=== PATIENT | female | born 1940 | race Caucasian/White ===

== ENCOUNTER → 2018-11-22 | Outpatient (CLI) | payer MEDICARE, BC, SELFPAY ==
[2018-11-07 08:49] VITALS: BMI 21.4
[2018-11-21 09:20] VITALS: BMI 21.2
--- NOTE | 2018-11-22 12:45 | ECHOD_ITS ---
Reason For Study: Dyspnea/SOB Procedure This was a 2D Doppler, Color Flow transthoracic echocardiogram. Exam performed in department. Left Ventricle Normal size and thickness. The estimated ejection fraction is 65 %. Stage 1 diastolic dysfunction. No regional wall motion abnormalities noted. Right Ventricle Normal size and thickness. Normal systolic function. Atria Normal left atrium. Normal right atrium. Normal atrial septum. Mitral Valve The mitral valve is structurally normal. No prolapse or stenosis seen. Tricuspid Valve Normal tricuspid valve. Trivial tricuspid valve insufficiency. Right ventricular systolic pressure estimated to be 32 mmHg. Aortic Valve Trisinus/trileaflet aortic valve. Mild focal aortic valve thickening. Trivial aortic valve insufficiency. Pulmonic Valve Normal pulmonic valve. Great Vessels Normal aortic root. Normal arch. Normal inferior vena cava. Inferior vena cava collapse with sniff. Pericardium/Pleural No pericardial effusion. MMode/2D Measurements & Calculations LVIDd: 3.8 cm IVSd: 0.91 cm LA dimension: 3.3 cm LVIDs: 2.1 cm LVPWd: 0.90 cm RVDd: 3.0 cm FS: 43.2 % LAV(MOD-bp): 37.7 ml LA A4 area: 14.2 cm2 RA A4 area: 12.6 cm2 LAV(MOD-bp) Indexed: 23.0 ml/m2 LAV(MOD-sp2): 35.6 ml LAV(MOD-sp4): 35.2 ml Time Measurements MV dec time: 0.15 sec Doppler Measurements & Calculations MV E max romel: 73.9 cm/sec Lat Peak E' Romel: 4.4 cm/sec Med Peak E' Romel: 4.7 cm/sec MV A max romel: 101.4 cm/sec E/E' lat: 16.8 E/E' med: 15.7 MV E/A: 0.73 MV V2 max: 137.7 cm/sec MV P1/2t max romel: 83.8 cm/sec Ao V2 max: 146.4 cm/sec MV max P.6 mmHg MV P1/2t: 94.7 msec Ao max P.6 mmHg MV V2 mean: 60.1 cm/sec MV dec slope: 259.1 cm/sec2 Ao V2 mean: 95.6 cm/sec MV mean P.8 mmHg MVA(P1/2t): 2.3 cm2 Ao mean P.1 mmHg MV V2 VTI: 35.9 cm Ao V2 VTI: 30.2 cm AI max romel: 476.6 cm/sec LV V1 max: 108.9 cm/sec PA V2 max: 109.8 cm/sec AI max P.8 mmHg LV V1 max P.7 mmHg LV V1 mean P.3 mmHg AI dec slope: 231.3 cm/sec2 LV V1 mean: 70.0 cm/sec AI P1/2t: 603.4 msec LV V1 VTI: 20.6 cm TR max romel: 236.3 cm/sec TR max P.5 mmHg Interpretation Summary The estimated ejection fraction is 65 %. Stage 1 diastolic dysfunction. Trivial tricuspid valve insufficiency. Right ventricular systolic pressure estimated to be 32 mmHg. Trivial aortic valve insufficiency. There is no comparison study available. Ordering Physician: Shadi De Leon Referring Physician: Shadi De Leon Performed By: Bradley Kwon RCS
== END | disposition home or self-care (01) ==
LOC: CVS 12:44
PROVIDERS: Family Provider Family Medicine; PCP Family Medicine; Referring Provider Internal Medicine Cardiovascular Disease; Visit Provider Internal Medicine Cardiovascular Disease
DX: Z98.890 Other specified postprocedural states (principal)
CPT/HCPCS: 93306

== ENCOUNTER → 2018-11-24 | Outpatient (CLI) | payer MEDICARE, BC, SELFPAY ==
[2018-11-07 08:49] VITALS: BMI 21.4
[2018-11-21 09:20] VITALS: BMI 21.2
--- NOTE | 2018-11-24 10:28 | STE_ITS ---
Reason For Study: DYSPNEA/SOB/ABN EKG Stress Results Protocol: Marcin Protocol Maximum Predicted HR: 143 bpm Target HR: 122 bpm % Maximum Predicted HR: 120 % DurationHeart Rate Stage (mm:ss) (bpm) BP Comment BASELINE 68 122/70 STAGE 1 3:00 157 172/80 STAGE 2 2:30 171 172/72INCREASED SOB, INCREASED HEART RATE AND PVC'S RECOVERY 100 120/72 Stress Duration: 5:30 mm:ss Maximum Stress HR: 171 bpm Baseline Echocardiogram Findings The estimated ejection fraction is 55 %. Stress Echo Wall motion Data Resting WM Intermediate WM Stress WM Resting Wall Motion Wall Motion Stress Anterio-Basal: Mildly Infero-Basal: Mildly hypokinetic. hypokinetic. Mid-Lateral : Mildly hypokinetic. EKG Data The baseline ECG displays normal sinus rhythm. The patient exercised according to the regular Marcin protocol for a total duration of 5:30. The maximum heart rate attained was 173 beats per minute. This was 120% of maximum predicted heart rate. The patient exercised into stage 2 of the Marcin protocol. During stress, there were no ST or T wave changes noted to suggest ischemia. No clinical angina was noted. Interpretation Summary The estimated ejection fraction is 55 %. Infero-Basal: Mildly hypokinetic Mid-Lateral : Mildly hypokinetic Abnormal, adequate, treadmill echocardiogram. Positive for ischemia based upon echocardiographic criteria. The patient appeared to develop inferior and lateral hypokinesis at peak exercise. Patient had a baseline intraventricular conduction delay due to baseline left bundle branch block making anterior interpretation somewhat difficult. No anginal symptoms noted. Rare PACs noted. Appropriate blood pressure response to exercise. Average exercise capacity for age. Test terminated due to the attainment of target heart rate and dyspnea which may be an anginal equivalent. Final LVEF of 55%. Ordering Physician: Shadi De Leon Referring Physician: Shadi De Leon Performed By: Deann Mrarufo, SHA, RVT
== END | disposition home or self-care (01) ==
LOC: CVS 10:27
PROVIDERS: Family Provider Family Medicine; PCP Family Medicine; Referring Provider Internal Medicine Cardiovascular Disease; Visit Provider Internal Medicine Cardiovascular Disease
DX: I44.7 Left bundle-branch block, unspecified (principal); R06.00 Dyspnea, unspecified; R94.31 Abnormal electrocardiogram [ECG] [EKG]
CPT/HCPCS: 93017; 93350

== ENCOUNTER → 2018-11-27 | Outpatient (CLI) | payer MEDICARE, BC, SELFPAY ==
[2018-11-27 09:39] VITALS: BMI 21.2
[2018-11-27 11:19] LABS: Anion Gap 2 (5-15); BUN 14 mg/dL (7-18); BUN/Creat Ratio 19.8 RATIO (10-20); Calcium,Total 8.8 mg/dL (8.5-10.1); Chloride 109 mmol/L (98-107); Creatinine, Serum 0.71 mg/dL (0.55-1.02); EST Glomerular Filtration Rate 85 mL/min (>60); Est Glom Filt Rate - Afr Amer 103 mL/min (>60); Glucose 86 mg/dL (74-106); Hematocrit 44.4 % (37-47); Hemoglobin 15.2 g/dl (12.0-15.0); Mean Corp Hgb Conc 34.2 g/gl (32-36); Mean Corpuscular Hgb 30.5 pg (27.0-32.0); Mean Corpuscular Volume 89.2 fL (81-99); Mean Platelet Vol. 10.1 fl (6.2-12.0); Platelet Count 223 K/mm3 (150-450); RBC Distribution Width CV 13.2 % (11.6-14.6); RBC Distribution Width SD 42.8 fl (35.1-43.9); Red Blood Count 4.98 M/mm3 (4.2-5.4); Sodium Level 141 mmol/L (136-145); White Blood Count 4.3 K/mm3 (4.4-11.0)
[2018-11-27 11:21] LABS: International Normalized Ratio 0.9; Prothrombin Time (Protime)PT. 12.4 SECONDS (11.7-14.9)
[2018-11-27 11:22] LABS: Partial Thromboplast Time 33.2 Seconds (24.1-36.2)
[2018-11-27 11:29] LABS: Scan Indicated on CBC? Y/N NO
== END | disposition home or self-care (01) ==
LOC: LAB 10:38
PROVIDERS: Family Provider Family Medicine; PCP Family Medicine; Referring Provider Internal Medicine Cardiovascular Disease; Visit Provider Internal Medicine Cardiovascular Disease
DX: R94.39 Abnormal result of other cardiovascular function study (principal); I20.8 Other forms of angina pectoris; R06.09 Other forms of dyspnea; R94.31 Abnormal electrocardiogram [ECG] [EKG]; R06.02 Shortness of breath
CPT/HCPCS: 36415; 80048; 85027; 85610; 85730

== ENCOUNTER 2018-12-01 07:12 | Day surgery (SDC) | payer MEDICARE, BC, SELFPAY ==
--- NOTE | 2018-11-07 09:10 | HP_ITS ---
HPI HPI Surgical H&P: Yes Details: Mr. Fenton is a very pleasant 77-year-old nondiabetic, non-smoking, nonhypertensive female, on no cardiac meds really who is been relatively healthy her whole life. The patient noted over the last several weeks that she has had progressively worsening dyspnea on exertion and shortness of breath. 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 Patient took ibuprofen and this improved it however returned more severely this past Tuesday and she described as though an elephant were on her arm. She had no concomitant chest pain, angina, shortness of breath or jaw pain with this. Patient iced her shoulder and took ibuprofen and it re-resolved. She has had no more right shoulder pain since that time. She sought medical attention her PCPs office on 10/25/18 and an EKG was performed. This demonstrated normal sinus rhythm with possible left atrial enlargement and left bundle branch block which apparently was newly discovered. She has never been told she has any coronary disease and is never undergone a catheterization. On further history she was told she had a murmur many years ago but cannot recall what type it was. She cannot recall having an EKG in the past 20 years. She is unsure how long she has had a left bundle branch block. In our office today her blood pressure is 120/64, pulse is 80 and regular. Her physical exam demonstrates clear lungs bilaterally, regular rate and rhythm, normal S1/S2, no S3 or S4. No carotid bruits no murmurs are detected. No edema. EKG is as above. Lipids as of 10/25/18 show an HDL of 63 and an LDL of 123. Non-HDL is 142. 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 Is patient in pain?: No Allergies Sulfa (Sulfonamide Antibiotics) Allergy (Severe, Verified 11/07/18 08:49) Eyegtts made eyes very inflamed Medications calcium 600mg with vitamin D3 125 units PO DAILY 11/01/18 [History Confirmed 11/01/18] cholecalciferol (vitamin D3) 1,000 unit tablet 1,000 unit PO DAILY 11/01/18 [History Confirmed 11/01/18] metronidazole 1 % topical gel 1 applic TOPICAL DAILY 11/01/18 [History Confirmed 11/01/18] multivitamin tablet 1 tab PO DAILY 11/01/18 [History Confirmed 11/01/18] vitamins A,C,S-dmbw-lkbzzc 7,160 unit-113 mg-100 unit tablet 1 tab PO BID tab 11/01/18 [History Confirmed 11/01/18] aspirin 81 mg tablet,delayed release 81 mg PO DAILY #30 tab 11/07/18 [Rx Confirmed 11/07/18] metoprolol tartrate 25 mg tablet 25 mg PO BID #60 tab 11/07/18 [Rx Confirmed 11/07/18] [facility] Medical History History of breast cancer (Chronic) History of hepatitis (Chronic) Left bundle branch block (LBBB) determined by electrocardiography (Acute) Diverticulosis (Chronic) Hx of skin cancer, basal cell (Chronic) Osteopenia (Chronic) Rosacea (Chronic) Surgical History History of lumpectomy of left breast (Chronic 1997) History of colonoscopy (Chronic) Family History Mother Brain tumor Father CAD (coronary artery disease) Sister COPD (chronic obstructive pulmonary disease) Brother CAD (coronary artery disease) Colon cancer Social History Smoking Status: Never smoker ROS Const Const: Positive for other (Mchenry like Elephant walked on my arm Tuesday, went away . Here for LBBB); negative for fatigue, weakness, body ache, fever(s), headache(s), chills, frequent falls, night sweats, daytime sleepiness, difficulty sleeping, excessive sweating, weight gain, weight loss, increased appetite, poor appetite or anorexia Eyes Eyes: Negative for blind spots, loss of peripheral vision, transient loss of vision, blurry vision, change in vision, double vision, floaters, tunnel vision or other ENT ENT: Negative for headache(s), dizziness, hearing loss, tinnitus, Nosebleed/epistaxis, balance problems, post nasal drip, lip swelling, tongue swelling, bleeding gums, hoarseness, neck pain, dry mouth or other Cardio Chest Pain: No (Right arm pain) Resp Respiratory: Positive for SOB with activity (More sob with walking than she did in past, usually walks fast); negative for SOB at rest, SOB orthopnea\SOB lying down, Coughing up blood/hemoptysis, chest congestion, pain on inspiration, snoring, stridor, wheezing, crackles, paroxysmal nocturnal dyspnea or other GI GI: Negative nausea, vomiting, heartburn, constipation, belching, bloating, cramping, vomiting blood/hematemesis, bright, red blood in stools, black,tarry stools, loose stools, Difficulty Swallowing or other : Negative for hematuria, frequent nighttime urination/ nocturia, erectile dysfunction or abnormal vaginal bleeding Musc Musc: Positive for muscle aches/ myalgia (right arm, hx frozen shoulder on right.); negative for muscle weakness, joint pain or balance problems Skin Skin: Negative redness, non-healing lesions, rash, unusual bruising, skin ulcer, wounds, jaundice or other Neuro Neuro: Negative for dizziness, lightheadedness, near syncope, syncope, orthostatic symptoms, frequent falls, headache(s), weakness, confusion, memory loss, restless legs, blurry vision, double vision, vertigo, seizures, lack of coordination or other Alan Hematologic/Lymphatic: Negative for easy bleeding, easy bruising, enlarged lymph nodes or other Endo Endo: Negative for fatigue, cold intolerance, heat intolerance, excessive sweating, flushing, increased thirst/drinking, increased hunger, hair loss, hair growth or other Psych Psych: Negative for anxiety, depression, thoughts of harming anyone, thoughts of harming yourself, visual hallucinations, panic attacks or audible hallucinations Allergy Allergy/Immunology: Negative for throat swelling, Negative for tongue swelling, Negative for hives, Negative for rash, Negative for lip swelling Cardiology Exam Const Appearance: cooperative, healthy appearing and no acute distress Nutritional Appearance: well nourished Orientation: alert, oriented x3 and oriented to person Head Head: normal to inspection, normocephalic and atraumatic Nose: external nose normal Face and Sinus: face symmetric Mouth: oral mucosae normal Eyes General: appearance normal, both eyes and all related structures Eyelids: eyelids normal Conjunctivae: conjunctivae normal Pupils: PERRL and normal by confrontation EOM: EOM intact bilaterally Neck Neck: normal visual inspection and full ROM Carotids: normal carotid upstroke Chest Chest inspection: normal inspection of the chest Auscultation: Bilateral: Clear to Auscultation Cardio Palpation: normal PMI Rate: regular rate Rhythm: regular rhythm Heart sounds: S1 normal and S2 normal GI GI: normal to inspection, no hepatosplenomegaly and bowel sounds present Neuro General: alert, awake, oriented x3, CN's II-XI intact bilaterally and moves all extremities Skin Skin: no rashes or lesions noted Extremities Pulses: Normal: Right Femoral Pulse, Left Femoral Pulse, Right Dorsalis Pedis Pulse, Left Dorsalis Pedis Pulse, Right Posterior Tibial Pulse, Left Posterior Tibial Pulse, Right Radial Pulse, Left Radial Pulse Lower Extremity Edema: None: Bilateral Psych Psychological: normal affect Assessment & Plan 1. Left bundle branch block (LBBB) determined by electrocardiography I44.7 Plan 1. Left bundle branch block: The patient has new onset right shoulder pain which is dissimilar from her previous frozen shoulder pain, does not appear to worsen with movement. This is happened on 2 occasions, but has had no concomitant chest pain, angina but has had dyspnea on exertion and shortness of breath. She has noticed a decrease in her exercise capacity over the last several weeks not being able to go as far or as fast with her daily walks. She now has newly discovered left bundle branch block on EKG. I recommended the patient initiate a baby aspirin 81 mg p.o. daily, Lopressor 12.5 mg p.o. twice daily to maintain her heart rate, and that she undergo a 2D echo with Doppler followed by a stress echocardiogram if her echo is normal. If either 1 of these are grossly abnormal, the patient may require diagnostic coronary angiogram. She will return in 2 weeks time for a blood pressure check. Given the patient's left bundle branch block, right shoulder symptoms and worsening dyspnea, I would have a low threshold for diagnostic coronary angiogram. 2. Hyperlipidemia: The patient's LDL and HDL cholesterol are essentially balanced. If she is found to have significant coronary disease I would recommend aggressive LDL reduction. 3. Return office in 6-months This note was generated using a voice recognition system and there may be incorrect words, spelling or punctuation that were not noted when reviewing the office note prior to saving. Orders Orders: Stress Test Echo w/o Contrast Today Plan Detail Other Orders Orders: Echo Complete Today Z98.890 Other Medications New: metoprolol tartrate 25 mg PO BID 60 tabs 11RF aspirin (Adult Aspirin Regimen) 81 mg PO DAILY 30 tabs 11RF Follow Up +6M (Moises) +2 weeks (BP CHECK) Coding Level of Care Code Off vis,new,level 4 Diagnoses Left bundle branch block (LBBB) determined by electrocardiography I44.7 Coding Level of Care Code Off vis,new,level 4 Diagnoses Left bundle branch block (LBBB) determined by electrocardiography I44.7 11/07/18 0910 <Electronically signed by Shadi De Leon MD> Date Shadi De Leon MD
--- NOTE | 2018-11-21 09:52 | HP_ITS ---
HPI HPI Surgical H&P: Yes Details: Mr. Fenton is a very pleasant 78-year-old nondiabetic, non-smoking, nonhypertensive female, on no cardiac meds really who is been relatively healthy her whole life. The patient noted over the last several weeks that she has had progressively worsening dyspnea on exertion and shortness of breath. 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 Patient took ibuprofen and this improved it however returned more severely this past Tuesday and she described as though an elephant were on her arm. She had no concomitant chest pain, angina, shortness of breath or jaw pain with this. Patient iced her shoulder and took ibuprofen and it re-resolved. She has had no more right shoulder pain since that time. She sought medical attention her PCPs office on 10/25/18 and an EKG was performed. This demonstrated normal sinus rhythm with possible left atrial enlargement and left bundle branch block which apparently was newly discovered. She has never been told she has any coronary disease and is never undergone a catheterization. On further history she was told she had a murmur many years ago but cannot recall what type it was. She cannot recall having an EKG in the past 20 years. She is unsure how long she has had a left bundle branch block. Pt denies chest, arm, jaw, or neck discomfort. His exercise tolerance is stable. Pt denies symptoms of palpitations, lightheadedness, dizziness, near syncopal or syncopal episodes. Pt denies edema or claudication issues. Pt. denies orthopnea, PND, fever, chills, blood in urine, blood in stool, myalgia, or unexplainable fatigue. She has reduce her activity until her stress echocardiogram. Intake Vital Signs 11/21/18 Height 5 ft 5 in 11/21/18 Weight: 128 lb 11/21/18 Body Mass Index (BMI) 21.2 11/21/18 Blood Pressure 112/56 L 11/21/18 Blood Pressure Location Lt brachial 11/21/18 Blood Pressure Position Sitting 11/21/18 Respiratory Rate 14 11/21/18 Pulse Rate 52 L 11/21/18 Pulse Source Auscultation 11/21/18 Body Mass Index (BMI) 21.4 Intake Visit Reasons: Blood pressure check Medicaid Billing Specialist Required: No Accompanied by: None Is patient in pain?: No Allergies Sulfa (Sulfonamide Antibiotics) Allergy (Severe, Verified 11/21/18 09:23) Eyegtts made eyes very inflamed Medications calcium 600mg with vitamin D3 125 units PO DAILY 11/01/18 [History Confirmed 11/21/18] cholecalciferol (vitamin D3) 1,000 unit tablet 1,000 unit PO DAILY 11/01/18 [History Confirmed 11/21/18] metronidazole 1 % topical gel 1 applic TOPICAL DAILY 11/01/18 [History Confirmed 11/21/18] multivitamin tablet 1 tab PO DAILY 11/01/18 [History Confirmed 11/21/18] vitamins A,C,V-uhpz-crefcm 7,160 unit-113 mg-100 unit tablet 1 tab PO BID tab 11/01/18 [History Confirmed 11/21/18] aspirin 81 mg tablet,delayed release 81 mg PO DAILY #30 tab 11/07/18 [Rx Confirmed 11/21/18] metoprolol tartrate 25 mg tablet 12.5 mg PO BID #60 tab 11/21/18 [Rx Confirmed 11/21/18] PFSH Medical History History of breast cancer (Chronic) History of hepatitis (Chronic) Left bundle branch block (LBBB) determined by electrocardiography (Chronic) Diverticulosis (Chronic) Hx of skin cancer, basal cell (Chronic) Osteopenia (Chronic) Rosacea (Chronic) Surgical History History of lumpectomy of left breast (Chronic 1997) History of tonsillectomy and adenoidectomy (Resolved) History of colonoscopy (Chronic) Family History Mother Brain tumor Father CAD (coronary artery disease) Sister COPD (chronic obstructive pulmonary disease) Brother CAD (coronary artery disease) Social History Smoking Status: Never smoker alcohol intake: never substance use type: does not use caffeine: No ROS Const Const: Negative for fatigue, weakness, body ache, fever(s) or chills ENT ENT: Negative for dizziness Cardio Chest Pain: No Palpitations: No Edema: None Muscle aches with walking: None Resp Respiratory: Negative for SOB with activity, SOB at rest, SOB orthopnea\SOB lying down or paroxysmal nocturnal dyspnea GI GI: Negative nausea, vomiting blood/hematemesis, bright, red blood in stools or black,tarry stools : Negative for hematuria or frequent nighttime urination/ nocturia Musc Musc: Negative for muscle aches/ myalgia Skin Skin: Negative non-healing lesions or rash Neuro Neuro: Negative for dizziness, lightheadedness, near syncope, syncope, orthostatic symptoms or weakness Endo Endo: Negative for fatigue Allergy Allergy/Immunology: Negative for rash Cardiology Exam Const Appearance: cooperative, healthy appearing, comfortable and no acute distress Nutritional Appearance: average body habitus and well nourished Orientation: alert, awake and oriented x3 Head Head: normal to inspection Ears: hearing grossly normal bilaterally Nose: external nose normal Face and Sinus: face symmetric Mouth: oral mucosae normal Eyes General: appearance normal, both eyes and all related structures Eyelids: eyelids normal EOM: EOM intact bilaterally Neck Neck: normal visual inspection and no JVD Carotids: normal carotid upstroke Chest Chest inspection: normal inspection of the chest, symmetric chest movement and normal respiratory effort; negative cough Auscultation: Bilateral: Clear to Auscultation Cardio Rate: bradycardic Rhythm: regular rhythm Heart sounds: S1 normal and S2 normal; negative rub, gallop or murmur GI GI: normal to inspection Neuro General: alert, awake, oriented x3 and CN's II-XI intact bilaterally Skin Skin: no rashes or lesions noted Extremities Pulses: Normal: Right Posterior Tibial Pulse, Left Posterior Tibial Pulse, Right Radial Pulse, Left Radial Pulse Lower Extremity Edema: None: Bilateral Psych Psychological: normal affect Assessment & Plan 1. Left bundle branch block (LBBB) determined by electrocardiography I44.7 Plan - [employer]UM[employer] Spaulding After last office visit patient was started on metoprolol tartrate 25 mg p.o. twice daily. Due to her lower heart rate at age 78, she was asked to decrease this to 12.5mg p.o. twice daily. We will continue to monitor. 2. Dyspnea on exertion R06.09 Plan - [employer] [place] Patient has described shortness of breath when on the treadmill at last office visit on 11/07/2018. She is scheduled to undergo an echocardiogram and stress echocardiogram later this week to further evaluate this in conjunction with right arm discomfort. Based on results further recommendation will be made. Plan Detail Other Medications Changed: From: metoprolol tartrate 25 mg PO BID 60 tabs 11RF To: metoprolol tartrate 12.5 mg (1/2 x 25 mg) PO BID 60 tabs 11RF Additional Comments - Osito H Roof, INTERNET [employer] SPECIALIST-C Discussed the above patient with Dr. De Leon, he agrees with the plan of care. Thank you for allowing us to participate in the patients plan of care, if you have any questions please do not hesitate to call. This note was generated using a voice recognition system and there may be incorrect words, spelling or punctuation that were not noted when reviewing the office note prior to saving. Coding Level of Care Code Off vis,est,level 2 Diagnoses Left bundle branch block (LBBB) determined by electrocardiography I44.7 Dyspnea on exertion R06.09 Coding Level of Care Code Off vis,est,level 2 Diagnoses Left bundle branch block (LBBB) determined by electrocardiography I44.7 Dyspnea on exertion R06.09 11/21/18 0952 <Electronically signed by Osito Johnson [employer] SPECIALIST-C> Date Osito Johnson INTERNET E[employer] SPECIALISTLaminC 11/22/18 1142<Electronically signed by Shadi De Leon MD> Cosigner Signature: Date (if applicable) Shadi De Leon MD
[2018-11-27 09:39] VITALS: BMI 21.2
--- NOTE | 2018-11-27 11:10 | RAD_ITS ---
STUDY: X-RAY CHEST REASON FOR EXAM: Female, 78 years old. Dyspnea, angina pectoris TECHNIQUE: PA and lateral views of the chest. COMPARISON: None. FINDINGS: The lungs are clear and expanded. There is no demonstrated pleural abnormality. Normal size heart. Normal mediastinum and jessenia. Normal visualized pulmonary arteries. There are calcified plaques of the aortic arch. Normal visualized thoracic spine. Normal visualized ribs, clavicles, and shoulders. Surgical clips are seen in the left axilla. RAD/Chest PA and Lateral IMPRESSION: Calcified plaques of the aortic arch. Surgical clips seen in the left axilla. No acute cardiopulmonary disease process is seen. Electronically Signed: Caleb Kurtz MD at 20:45 EDT , Service support ,
[2018-11-28 09:08] VITALS: BMI 21.2
[2018-11-30 07:45] VITALS: BMI 21.2
--- NOTE | 2018-12-01 08:48 | CL.D_ITS ---
Patient Name: ANAYELI SULLIVAN Study Date: 12/01/2018 Performing: Shadi De Leon MD Ht: 64.96 inches 165 cm : 1940 Wt: 127.87 lbs 58 kg Age: 78 Gender: female BSA: 1.63 PROCEDURE(S) PERFORMED [id number]/LV CLINICAL PROFILE AND INDICATIONS Indications: New Onset Angina <= 2 months, Suspected CAD Heart Failure: None Stress/Imaging Date: 11/24/2018Stress Echocardiogram: Positive Low Risk Angina Classification Anginal Classification w/in 2 Weeks: No symptoms CAD Presentations: Unstable angina. Comorbidities/Risk Factors: Hypertension CONCLUSIONS Normal LV size, wall motion,and systolic function LVEF: by LV gram 65 % Elevated Left Ventricular End Diastolic Pressure Non obstructive coronary arteries RECOMMENDATIONS Management as per referring [employer] D/c plavix, cont baby asa. Start Imdur 30mg po qd for possible coronary vasospasm, as pt's arteries markedly dilated with IC NTG . Manual sheath removal. DESCRIPTION OF PROCEDURE The patient arrived to the procedure lab. The risks and benefits of the procedure as well as a full d escription of our services here and current unavailability of surgical backup were fully explained to the patient and/or their significant other prior to the catheterization. The Timeout was completed, verifying the correct patient and procedure. The patient's procedural site was prepped and draped in the usual fashion. Local anesthetic was given subcutaneously to right groin region with Lidocaine 2%. Using a modified Seldinger technique, arterial access was obtained via the right femoral artery, a 4 Fr sheath was inserted Left Coronary Artery selective angiography was performed in multiple views us ing a 4 Fr. JL5 catheter. Right Coronary Artery selective angiography was then performed in multiple views using a 4 Fr. 3DRC catheter. Left Ventriculography was performed in TONY projection using a 4 Fr . Pigtail catheter. LV to AO pullback pressures were then recorded.The arterial sheath was pulled and manual compression applied until hemostasis is achieved. CORONARY ANGIOGRAPHY DOMINANCE: Left Dominant LEFT HEART ASSESSMENT Left Ventricular Ejection Fraction: by LV Gram 65 % Normal LV wall motion Normal Left Ventricular systolic function LEFT MAIN: Angiographically normal LEFT ANTERIOR DESCENDING ARTERY: Angiographically normal CIRCUMFLEX ARTERY: PROX CIRC: Mild luminal irregularities less than 30% DISTAL CIRC: Mild luminal irregularities less than 30% RIGHT CORONARY ARTERY: Angiographically normal COMPLICATIONS No Complications PROCEDURE MEDICATIONS Oxygen: 2 L/min via nasal cannula Nitro 200 mcg IC 12/01/2018 08:28:03 SUMMARY OF HEMODYNAMIC DATA Time AIR REST ECG 07:39:35 AO 142/76 (104) SA 08:25:13 LV 136/14, 19 08:34:48 LV 135/10, 21 08:34:54 LVp 135/3, 13 08:35:00 AOp 143/55 (85) 08:35:05 Signed By Shadi De Leon MD On 12/01/2018 08:47:22 Shadi De Leon MD
--- NOTE | 2018-12-01 10:28 | PCM.HP.BLA ---
Problem List (1) Abnormal stress echo Status: Acute (2) Anginal equivalent Status: Acute Comment: jaw, shoulder and arm pain at rest. (3) Dyspnea on exertion Status: Acute (4) Left bundle branch block (LBBB) determined by electrocardiography Status: Chronic History and Physical Date of Admission: 12/01/18 [facility] Surgical H&P: Yes Details: Mr. Fenton is a very pleasant 78-year-old nondiabetic, non-smoking, nonhypertensive female, on no cardiac meds really who is been relatively healthy her whole life. The patient noted over the last several weeks that she has had progressively worsening dyspnea on exertion and shortness of breath. 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 Patient took ibuprofen and this improved it however returned more severely this past Tuesday and she described as though an elephant were on her arm. She had no concomitant chest pain, angina, shortness of breath or jaw pain with this. Patient iced her shoulder and took ibuprofen and it re-resolved. She has had no more right shoulder pain since that time. She sought medical attention her PCPs office on 10/25/18 and an EKG was performed. This demonstrated normal sinus rhythm with possible left atrial enlargement and left bundle branch block which apparently was newly discovered. She has never been told she has any coronary disease and is never undergone a catheterization. On further history she was told she had a murmur many years ago but cannot recall what type it was. She cannot recall having an EKG in the past 20 years. She is unsure how long she has had a left bundle branch block. Pt denies chest, arm, jaw, or neck discomfort. His exercise tolerance is stable. Pt denies symptoms of palpitations, lightheadedness, dizziness, near syncopal or syncopal episodes. Pt denies edema or claudication issues. Pt. denies orthopnea, PND, fever, chills, blood in urine, blood in stool, myalgia, or unexplainable fatigue. She has reduce her activity until her stress echocardiogram. 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 Accompanied by: None Is patient in pain?: No Allergies Sulfa (Sulfonamide Antibiotics) Allergy (Severe, Verified 11/21/18 09:23) Eyegtts made eyes very inflamed Medications calcium 600mg with vitamin D3 125 units PO DAILY 11/01/18 [History Confirmed 11/21/18] cholecalciferol (vitamin D3) 1,000 unit tablet 1,000 unit PO DAILY 11/01/18 [History Confirmed 11/21/18] metronidazole 1 % topical gel 1 applic TOPICAL DAILY 11/01/18 [History Confirmed 11/21/18] multivitamin tablet 1 tab PO DAILY 11/01/18 [History Confirmed 11/21/18] vitamins A,C,X-pibw-oxcajf 7,160 unit-113 mg-100 unit tablet 1 tab PO BID tab 11/01/18 [History Confirmed 11/21/18] aspirin 81 mg tablet,delayed release 81 mg PO DAILY #30 tab 11/07/18 [Rx Confirmed 11/21/18] metoprolol tartrate 25 mg tablet 12.5 mg PO BID #60 tab 11/21/18 [Rx Confirmed 11/21/18] PFSH Medical History History of breast cancer (Chronic) History of hepatitis (Chronic) Left bundle branch block (LBBB) determined by electrocardiography (Chronic) Diverticulosis (Chronic) Hx of skin cancer, basal cell (Chronic) Osteopenia (Chronic) Rosacea (Chronic) Surgical History History of lumpectomy of left breast (Chronic 1997) History of tonsillectomy and adenoidectomy (Resolved) History of colonoscopy (Chronic) Family History Mother Brain tumor Father CAD (coronary artery disease) Sister COPD (chronic obstructive pulmonary disease) Brother CAD (coronary artery disease) Social History Smoking Status: Never smoker alcohol intake: never substance use type: does not use caffeine: No ROS Const Const: Negative for fatigue, weakness, body ache, fever(s) or chills ENT ENT: Negative for dizziness Cardio Chest Pain: No Palpitations: No Edema: None Muscle aches with walking: None Resp Respiratory: Negative for SOB with activity, SOB at rest, SOB orthopnea\SOB lying down or paroxysmal nocturnal dyspnea GI GI: Negative nausea, vomiting blood/hematemesis, bright, red blood in stools or black,tarry stools : Negative for hematuria or frequent nighttime urination/ nocturia Musc Musc: Negative for muscle aches/ myalgia Skin Skin: Negative non-healing lesions or rash Neuro Neuro: Negative for dizziness, lightheadedness, near syncope, syncope, orthostatic symptoms or weakness Endo Endo: Negative for fatigue Allergy Allergy/Immunology: Negative for rash Cardiology Exam Const Appearance: cooperative, healthy appearing, comfortable and no acute distress Nutritional Appearance: average body habitus and well nourished Orientation: alert, awake and oriented x3 Head Head: normal to inspection Ears: hearing grossly normal bilaterally Nose: external nose normal Face and Sinus: face symmetric Mouth: oral mucosae normal Eyes General: appearance normal, both eyes and all related structures Eyelids: eyelids normal EOM: EOM intact bilaterally Neck Neck: normal visual inspection and no JVD Carotids: normal carotid upstroke Chest Chest inspection: normal inspection of the chest, symmetric chest movement and normal respiratory effort; negative cough Auscultation: Bilateral: Clear to Auscultation Cardio Rate: bradycardic Rhythm: regular rhythm Heart sounds: S1 normal and S2 normal; negative rub, gallop or murmur GI GI: normal to inspection Neuro General: alert, awake, oriented x3 and CN's II-XI intact bilaterally Skin Skin: no rashes or lesions noted Extremities Pulses: Normal: Right Posterior Tibial Pulse, Left Posterior Tibial Pulse, Right Radial Pulse, Left Radial Pulse Lower Extremity Edema: None: Bilateral Psych Psychological: normal affect Assessment & Plan 1. Left bundle branch block (LBBB) determined by electrocardiography I44.7 Adiel - AUTUMN Spaulding After last office visit patient was started on metoprolol tartrate 25 mg p.o. twice daily. Due to her lower heart rate at age 78, she was asked to decrease this to 12.5mg p.o. twice daily. We will continue to monitor. 2. Dyspnea on exertion R06.09 AUTUMN Leach Patient has described shortness of breath when on the treadmill at last office visit on 11/07/2018. She is scheduled to undergo an echocardiogram and stress echocardiogram later this week to further evaluate this in conjunction with right arm discomfort. Based on results further recommendation will be made. Plan Detail Other Medications Changed: From: metoprolol tartrate 25 mg PO BID 60 tabs 11RF To: metoprolol tartrate 12.5 mg (1/2 x 25 mg) PO BID 60 tabs 11RF Additional Comments - RASHAD SpauldingC Discussed the above patient with Dr. De Leon, he agrees with the plan of care. Thank you for allowing us to participate in the patients plan of care, if you have any questions please do not hesitate to call. This note was generated using a voice recognition system and there may be incorrect words, spelling or punctuation that were not noted when reviewing the office note prior to saving. Coding Level of Care Code Off vis,est,level 2 Diagnoses Left bundle branch block (LBBB) determined by electrocardiography I44.7 Dyspnea on exertion R06.09 Coding Level of Care Code Off vis,est,level 2 Diagnoses Left bundle branch block (LBBB) determined by electrocardiography I44.7 Dyspnea on exertion R06.09 11/21/18 0952<Electronically signed by Osito SOLORZANOC> Date Osito SOLORZANOC 11/22/18 1142<Electronically signed by Shadi De Leon MD> Cosigner Signature:Date (if applicable)Shadi De Leon MD CC: Fransisco Amador MD ~ Attending cardiology addendum: Patient seen and examined this morning, and no appreciable change in her clinical condition since her last visit. We will proceed with left heart catheterization to evaluate the patient's chest pain symptoms, abnormal stress test. This note was generated using a voice recognition system and there may be incorrect words, spelling or punctuation that were not noted when reviewing the office note prior to saving.
== END 2018-12-01 13:00 | disposition home or self-care (01) ==
LOC: CLSP 07:13
PROVIDERS: Family Provider Family Medicine; PCP Family Medicine; Referring Provider Internal Medicine Cardiovascular Disease; Visit Provider Internal Medicine Cardiovascular Disease
DX: R94.39 Abnormal result of other cardiovascular function study (principal); I44.7 Left bundle-branch block, unspecified; I20.8 Other forms of angina pectoris; R68.84 Jaw pain; M25.511 Pain in right shoulder; M79.601 Pain in right arm; R06.09 Other forms of dyspnea; I10 Essential (primary) hypertension; K57.90 Diverticulosis of intestine, part unspecified, without perforation or abscess without bleeding; M85.80 Other specified disorders of bone density and structure, unspecified site; L71.9 Rosacea, unspecified; Z85.828 Personal history of other malignant neoplasm of skin; Z85.3 Personal history of malignant neoplasm of breast; Z79.82 Long term (current) use of aspirin; Z79.899 Other long term (current) drug therapy
CPT/HCPCS: 71046; 93458; J7040; Q9967; C1769

== ENCOUNTER 2019-05-23 13:47 | Emergency (ER) | payer MEDICARE, BC, SELFPAY ==
[2018-12-25 09:20] VITALS: BMI 20.9
[2019-05-23 13:48] VITALS: BP 130/59; PULSE 68; RESP 14; O2SAT 97
[2019-05-23 13:49] VITALS: BP 130/59; PULSE 70; RESP 15; TEMP 36.6; O2SAT 98; BMI 24.0
--- NOTE | 2019-05-23 14:16 | EKG12_ITS ---
Test Reason : SOB Blood Pressure : / mmHG Vent. Rate : 072 BPM Atrial Rate : 072 BPM P-R Int : 156 ms QRS Dur : 134 ms QT Int : 432 ms P-R-T Axes : 057 -05 046 degrees QTc Int : 473 ms Normal sinus rhythm Left bundle branch block Abnormal ECG Confirmed by JENAE CASTELLANOS, JOB ([id number]), editor map JUN OCHOA ([id number]) on 05/28/2019 8:37:40 AM Referred By: VANESA Confirmed By:JOB EMANUEL MD
--- NOTE | 2019-05-23 14:16 | RAD_ITS ---
STUDY: X-RAY CHEST REASON FOR EXAM: Female, 78 years old. Near syncope, dizziness TECHNIQUE: PA and lateral views of the chest. COMPARISON: 11/27/2018 FINDINGS: Status post left axillary lymph node dissection. The lungs are clear and expanded. Elevated right hemidiaphragm which is unchanged. Normal size heart. Normal mediastinum and jessenia. Normal visualized pulmonary arteries. Normal visualized aortic arch and descending thoracic aorta. Normal visualized thoracic spine. Normal visualized ribs, clavicles, and shoulders. There is no demonstrated abnormality of the visualized soft tissue structures of the upper abdomen. RAD/Chest PA and Lateral IMPRESSION: No active disease. Electronically Signed: Willard Mackey MD at 15:10 EDT Tel , Service support ,
--- NOTE | 2019-05-23 14:35 | ED.RN ---
NO OLD EKG
[2019-05-23 15:02] LABS: Absolute Lymphocyte Count 0.84 X10^3/uL (0.83-4.51); Absolute Neutrophil Count 3.6 X10^3/uL (2.0-7.7); Eosinophil# 0.03 X10^3/uL; Eosinophils% 0.6 % (0-5); Hematocrit 40.5 % (37-47); Hemoglobin 13.6 g/dL (12.0-15.0); Lymphocyte # 0.84 X10^3/ul (4.0); Lymphocyte % 17.5 % (19-41); Mean Corp Hgb Conc 33.6 g/dL (32-36); Mean Corpuscular Hgb 30.7 pg (27.0-32.0); Mean Corpuscular Volume 91.4 fL (81-99); Mean Platelet Vol. 9.3 fl (6.2-12.0); Monocyte# 0.37 X10^3/uL; Monocyte% 7.7 % (0-10); NRBC Flagged by Analyzer 0 % (0-5); Neutrophil # 3.55 X10^3/uL (2.7-7.7); Platelet Count 208 K/mm3 (150-450); RBC Distribution Width CV 12.8 % (11.6-14.6); RBC Distribution Width SD 42.9 fl (35.1-43.9); Red Blood Count 4.43 M/mm3 (4.2-5.4); White Blood Count 4.8 K/mm3 (4.4-11.0)
[2019-05-23 15:15] LABS: Anion Gap 6 (5-15); BUN 17 mg/dL (7-18); BUN/Creat Ratio 22.7 RATIO (10-20); Calcium,Total 8.9 mg/dL (8.5-10.1); Chloride 106 mmol/L (98-107); Creatinine, Serum 0.75 mg/dL (0.55-1.02); EST Glomerular Filtration Rate 80 mL/min (>60); Est Glom Filt Rate - Afr Amer 97 mL/min (>60); Estimated Creatinine Clearance 42.39 ml/min; Glucose 115 mg/dL (74-106); Potassium 3.7 mmol/L (3.5-5.1); Sodium Level 141 mmol/L (136-145)
--- NOTE | 2019-05-23 15:30 | ED.DCSUM_ITS ---
- ER Visit Summary Date of Service: 05/23/19 Chief Complaint: Dyspnea History of Present Illness: The patient is a 78 F who presents with dyspnea that began today. Patient states she was sitting when she started to feel short of breath. Patient states this lasted approximately 10 minutes. Patient states that improve when she went out into the cold air. Patient states she felt lightheaded with this. Patient denies any chest pain. Patient denies any cough. Patient denies any fevers or chills. Patient states she felt weak, like she was going to pass out. Patient denies any palpitations. Physical Examination: Vital signs are stable. Patient is afebrile. Patient is in no acute distress. Oral mucosa is pink and moist. Neck is supple. Trachea is midline. There is no JVD. Heart was regular rate and rhythm. Lungs are clear and equal bilaterally. Abdomen is soft. Bowel sounds are normal. There is no tenderness. Cranial nerves II through XII are intact. There are no focal motor or sensory deficits noted. Test Results: EKG showed normal sinus rhythm with a rate of 72. There is a left bundle branch block pattern noted. There are no acute ST or T wave changes. This is unchanged compared to previous EKG dated 11/24/2018. CBC and basic metabolic profile within normal limits. Troponin was normal. PA and lateral chest x-ray was obtained and was normal. Emergency Department Course and Treatment: Patient had no further episodes of shortness of breath and dizziness here in the emergency department. Patient felt better on reevaluation. Patient was instructed to follow-up with her primary care physician in 5 to 7 days. Patient and family understood and were agreeable with the plan. All questions were answered. Disposition: Discharge home Impression: Dyspnea This note was generated with Realitycheck dictation software. It may contain incorrect words, spelling, and punctuation that were not noted in review of the chart prior to signing ED Disposition - Plan for ED Patient: Disposition: Home or Assisted Living Diagnosis: Dyspnea Instructions: ED Dyspnea Referrals: Fransisco Amador MD [Primary Care Provider] - 5-7 Days
[2019-05-23 15:51] VITALS: BP 111/56; PULSE 67; RESP 16; O2SAT 94
== END 2019-05-23 15:51 | disposition home or self-care (01) ==
PROVIDERS: Emergency Provider Emergency Medicine; Family Provider Family Medicine; PCP Family Medicine
DX: R06.00 Dyspnea, unspecified (principal); R42 Dizziness and giddiness; R53.1 Weakness; I44.7 Left bundle-branch block, unspecified; I20.1 Angina pectoris with documented spasm; Z79.82 Long term (current) use of aspirin; Z79.899 Other long term (current) drug therapy
CPT/HCPCS: 71046; 80048; 84484; 85025; 93005; 99285; A4216

== ENCOUNTER 2020-08-29 09:16 | Outpatient (RCR) | payer MEDICARE, BC, SELFPAY ==
[2020-08-20 10:02] VITALS: BMI 23.3
== END 2020-08-29 23:59 ==
LOC: IMMUN 09:16
PROVIDERS: PCP Family Medicine; Referring Provider Family Medicine; Visit Provider Family Medicine
DX: Z23 Encounter for immunization (principal)
CPT/HCPCS: 0011A; 0012A

== ENCOUNTER 2021-09-01 12:49 | Outpatient (CLI) | payer MEDICARE, BC, SELFPAY ==
--- NOTE | 2021-09-01 12:53 | ECHOD_ITS ---
Reason For Study: MURMUR Procedure This was a 2D Doppler, Color Flow transthoracic echocardiogram. Exam performed in department. Left Ventricle Normal LV size. Left ventricular systolic function is normal. The estimated ejection fraction is 70 %. Diastolic function is indeterminate. No regional wall motion abnormalities noted. Right Ventricle Normal RV size. Normal systolic function. Atria Normal left atrium. Normal right atrium. No doppler evidence for ASD. Mitral Valve There is mild mitral annular calcification. Chordal systolic anterior motion of the mitral valve. Trivial mitral valve insufficiency. Tricuspid Valve Normal tricuspid valve. Trivial tricuspid valve insufficiency. Right ventricular systolic pressure estimated to be 30 mmHg. Aortic Valve The aortic valve is not well visualized. Mild focal aortic valve calcification. Trivial aortic valve insufficiency. Pulmonic Valve The pulmonic valve is not well visualized. Great Vessels Normal sized aortic root. Pericardium/Pleural No pericardial effusion. MMode/2D Measurements & Calculations LVIDd: 3.3 cm IVSd: 0.91 cm LVOT diam: 2.0 cm LVIDs: 2.2 cm LVPWd: 0.87 cm LVOT area: 3.0 cm2 RVDd: 2.5 cm FS: 33.6 % Ao root diam: 2.7 cm LAV(MOD-bp): 28.4 ml LA A4 area: 10.6 cm2 LAV(MOD-bp) Indexed: 16.8 ml/m2 LAV(MOD-sp2): 29.4 ml LAV(MOD-sp4): 23.0 ml LA dimension(2D): 3.1 cm RA A4 area: 12.2 cm2 Time Measurements MV dec time: 0.22 sec Doppler Measurements & Calculations MV E max romel: 77.8 cm/sec Lat Peak E' Romel: 4.6 cm/sec Med Peak E' Romel: 7.1 cm/sec MV A max romel: 133.3 cm/sec E/E' lat: 17.0 E/E' med: 10.9 MV E/A: 0.58 Ao V2 max: 163.8 cm/sec AI max romel: 455.8 cm/sec LV V1 max: 119.4 cm/sec Ao max P.7 mmHg AI max P.1 mmHg LV V1 max P.7 mmHg Ao V2 mean: 124.2 cm/sec AI dec slope: 246.8 cm/sec2 LV V1 mean P.4 mmHg Ao mean P.6 mmHg AI P1/2t: 540.8 msec LV V1 mean: 88.8 cm/sec Ao V2 VTI: 28.3 cm LV V1 VTI: 22.0 cm ROYAL(I,D): 2.3 cm2 ROYAL(V,D): 2.2 cm2 SV(LVOT): 65.6 ml PA V2 max: 100.2 cm/sec TR max roeml: 261.4 cm/sec TR max P.3 mmHg ECHO/Echo Complete Interpretation Summary Left ventricular systolic function is normal. The estimated ejection fraction is 70 %. There is mild mitral annular calcification. Chordal systolic anterior motion of the mitral valve. Trivial mitral valve insufficiency. Trivial tricuspid valve insufficiency. Mild focal aortic valve calcification. Trivial aortic valve insufficiency. Right ventricular systolic pressure estimated to be 30 mmHg. Diastolic function is indeterminate. Ordering Physician: Juan F Hawley Referring Physician: Jack Amador Performed By: eDann Marrufo, SHA, RVT
== END 2021-09-01 23:59 | disposition home or self-care (01) ==
LOC: CVS 12:52
PROVIDERS: PCP Family Medicine; Referring Provider Internal Medicine Cardiovascular Disease; Visit Provider Internal Medicine Cardiovascular Disease
DX: I25.10 Atherosclerotic heart disease of native coronary artery without angina pectoris (principal); R01.1 Cardiac murmur, unspecified; I44.7 Left bundle-branch block, unspecified
CPT/HCPCS: 93306

== ENCOUNTER 2021-10-09 09:22 | Outpatient (CLI) | payer MEDICARE, BC, SELFPAY ==
--- NOTE | 2021-10-09 09:27 | BI_ITS ---
MAMMOGRAPHY - BILATERAL DIAGNOSTIC REASON FOR EXAM: Female, 80 years old. MASS PERTINENT HISTORY: Non-contributory. TECHNIQUE: Digital examination. Mediolateral oblique (MLO) and craniocaudad (CC) views of both breasts were obtained. CAD: CAD was performed on this study. COMPARISON: 10/21/2020 FINDINGS: Breast Composition: There are scattered areas of fibroglandular density. There are no dominant masses or suspicious calcifications. Lumpectomy changes in the inferior left breast with axillary lymph node dissection. BI/DIAG MAMM W/CAD, BILAT IMPRESSION: Stable bilateral diagnostic mammogram. Ultrasound of the palpable abnormality in the superior right breast will be obtained. ASSESSMENT CATEGORY: BIRADS Category 0: Incomplete. Need additional imaging evaluation. A letter regarding these results will be sent to the patient by the facility within 30 days. FOLLOW UP RECOMMENDATION: Ultrasound Recommended. (I) Approximately 10% of breast cancers are not detected by mammography. A normal mammogram should not delay biopsy of a clinically suspicious abnormality. Electronically Signed: Willard Mackey MD at 10:09 EDT ,
--- NOTE | 2021-10-09 09:28 | US_ITS ---
STUDY: ULTRASOUND BREAST - RIGHT REASON FOR EXAM: Female, 80 years old. Palpable mass TECHNIQUE: Axial and longitudinal images of the RIGHT breast were performed with a high resolution ultrasound transducer. # OF IMAGES: 16 COMPARISON: Diagnostic mammogram earlier today FINDINGS: RIGHT Breast: Multiple longitudinal and transverse ultrasound images of the upper right breast in the area of the palpable abnormality demonstrate a 4 mm oval parallel circumscribed hypoechoic mass with central increased echogenicity located superficially between the dermis and the subcutaneous fat. Possibilities include an intramammary lymph node which would be unusual in this location or a dermatologic lesion such as a sebaceous cyst.: US/Breast Limited Unilateral IMPRESSION: Ultrasound confirms a 4 mm superficial lesion likely consistent with a sebaceous cyst or less likely intramammary lymph node. ASSESSMENT CATEGORY: BIRADS Category 2: Benign. A letter regarding these results will be sent to the patient by the facility within 30 days. Electronically Signed: Willard Mackey MD at 11:47 EDT ,
== END 2021-10-09 23:59 | disposition home or self-care (01) ==
PROVIDERS: PCP Family Medicine; Referring Provider Family Medicine; Visit Provider Family Medicine
DX: N63.11 Unspecified lump in the right breast, upper outer quadrant (principal)
CPT/HCPCS: 76642; 77062; 77066; G0279

== ENCOUNTER 2023-08-26 11:22 | Emergency (ER) | payer MEDICARE, BC, SELFPAY ==
[2023-08-26 11:23] VITALS: BP 144/84; PULSE 84; RESP 16; TEMP 36.6; O2SAT 99; BMI 23.3
--- NOTE | 2023-08-26 11:34 | ED.RN ---
PT NOTICED FIRST S/S ON TUESDAY, THEN MORE S/S AND SOME LAST NIGHT,THIS AM
[2023-08-26 11:47] LABS: Bedside Glucose 101 mg/dL (74-106)
--- NOTE | 2023-08-26 11:47 | EDS_ITS ---
HPI History of Present Illness Chief Complaint: Neuro S/Sx Detail of Chief Complaint: Right facial palsy began on Tuesday. Informant: patient Onset/Context/Timing Onset: Days Context: Gradual Onset Timing: Continuous Quality and Location: Positive for Right Facial Droop; Negative for Right Arm Parasthesia, Left Arm Parasthesia, Right Leg Parasthesia, Left Leg Parasthesia, Right Arm Weakness, Left Arm Weakness, Right Leg Weakness, Left Leg Weakness, Slurred Speech, Expressive Aphasia, Receptive Aphasia or Difficulty with Ambulation Onset: Right facial droop. Difficulty closing right eye. Current Severity: Mild Maximum Severity: Mild Associated Symptoms Associated Symptoms: Negative for Headache, Nausea, Vomiting or Chest Pain Narrative Narrative: 82-year-old female history of prior Hart's palsy years ago. Says she developed right ear pain on Tuesday then developed drooping and difficulty closing her right eye with increased watering and today developed a right facial droop. No headache. No fall or trauma. No difficulty using her arms or legs. No weakness or numbness to arms or legs. No difficulty walking or talking. No history of stroke. 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 artery disease) Cardiac murmur Diverticulosis Dyspnea on exertion History of breast cancer History of hepatitis Hx of skin cancer, basal cell Left bundle branch block (LBBB) determined by electrocardiography Osteopenia Rosacea Home Medications cholecalciferol (vitamin D3) 25 mcg (1,000 unit) tablet 1,000 unit PO DAILY 11/01/18 [History Last Taken Unknown] multivitamin 1 tab PO DAILY 11/01/18 [History Last Taken Unknown] vitamins A,C,H-yhjm-ooaetp 2,148 mcg-113 mg-45 mg-17.4 mg tablet 1 tab PO BID 11/01/18 [History Last Taken Unknown] aspirin 81 mg tablet,delayed release (Adult Aspirin Regimen) 81 mg PO DAILY #30 tabs 11/07/18 [Rx Last Taken 12/01/18] calcium carbonate 500 mg-vitamin D3 3.125 mcg (125 unit) tablet 2 tab PO DAILY 08/20/20 [History Last Taken Unknown] metronidazole 1 % topical gel g topical 08/20/20 [History Last Taken Unknown] alendronate 70 mg tablet 70 mg PO QWEEK 10/01/22 [History Last Taken Unknown] isosorbide mononitrate 30 mg tablet,extended release 24 hr 30 mg PO DAILY #90 tabs 10/01/22 [Rx Last Taken Unknown] metoprolol tartrate 25 mg tablet 25 mg PO BID #180 tabs 10/01/22 [Rx Last Taken Unknown] famciclovir 500 mg tablet 500 mg PO BID 7 days #14 tabs 08/26/23 [Rx Last Taken Unknown] prednisone 20 mg tablet 40 mg (2 x 20 mg) PO DAILY #14 tabs 08/26/23 [Rx Last Taken Unknown] Allergy/AdvReac Type Severity Reaction Status Date / Time Sulfa (Sulfonamide Allergy Severe Eyegtts Verified 10/01/22 10:07 Antibiotics) made eyes very inflamed Family History Mother Brain tumor Father CAD (coronary artery disease) Sister COPD (chronic obstructive pulmonary disease) Brother CAD (coronary artery disease) Surgical History History of colonoscopy History of left heart catheterization (12/01/18) History of lumpectomy of left breast (1997) History of tonsillectomy and adenoidectomy Social History Smoking Status: Never smoker alcohol intake: never substance use type: does not use caffeine: No ROS ROS ED ROS Narrative Denies recent illness. Review of Systems ROS Unobtainable: Denies due to encephalopathy Constitutional Constitutional ED: Denies chills or fever(s) Eyes Eyes: Denies blurry vision ENT ENT ED: Denies ear pain Cardiovascular Cardiovascular: Denies chest pain Respiratory/Chest Respiratory/Chest: Denies cough or dyspnea Gastrointestinal Gastrointestinal: Denies abdominal pain Genitourinary Genitourinary ED: Denies dysuria or hematuria Musculoskeletal Musculoskeletal: Denies arthralgias or back pain Integumentary Denies abscess or Abrasions Neurologic Neurologic: Denies headache(s) or paresthesias Psychiatric Psychiatric: Denies anxiety, depression or suicidal ideation Endocrine Endocrinology: Denies polydipsia or polyphagia Hematologic/Lymphatic Hematologic/Lymphatic: Denies easy bleeding Allergic/Immunologic Allergic/Immunologic ED: Denies mouth swelling EXAM Physical Exam Narrative Exam Narrative: 82-year-old female No acute distress. Vital signs stable afebrile. HEENT exam pupils round reactive light. Difficulty closing her right eye increased watering. Extra motions are intact. Mild right facial droop. Normal speech no slurring tongue midline. Forehead spared. Right TM normal. Neck nontender. Lungs clear. Heart regular rhythm rate about 80 no murmur. Chest wall and ribs nontender. Abdomen soft nontender. Moving all 4 extremities. 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 Dorsi plantarflexion intact. Fingertip to nose within normal limits. Neurologic exam right facial droop otherwise no weakness or numbness to the upper or lower extremities. Exam consistent with Hart's palsy. Const Vital Signs: 08/26/23 11:23 Temperature 97.8 F Temperature Source Temporal Pulse Rate 84 Respiratory Rate 16 Blood Pressure 144/84 H Blood Pressure Mean 104 Pulse Ox 99 Oxygen Delivery Method Room Air Positive well nourished and well developed; Negative for obese, cachectic, contractures or unkempt General Appearance ED: well developed and NAD; Negative for unkempt, cachectic or contractures Nutritional Appearance: Negative for cachectic or obese HEENT Reports TM's clear and moist mucous membranes; Denies dry mucous membranes atraumatic; Negative for trauma Nose: Negative for other Tympanic Membrane ED: Yes TM's clear Mouth ED: No dry mucous membranes Mouth: No dry mucous membranes Eyes PERRL and EOMs intact bilaterally General Eye ED: Negative for pale conjunctiva, scleral icterus or other Neck no lymphadenopathy, supple and no JVD General: Negative for tenderness Thyroid: Negative for other Chest Wall inspection of chest normal and palpation of chest normal Chest: Negative for other Resp normal respiratory effort and clear to auscultation bilaterally Effort and Inspection: Negative for retractions Auscultation: Negative for rales, rhonchi or wheezes Cardio no murmurs Rate: regular rate Rhythm: regular rhythm GI normal to inspection, nondistended, normoactive bowel sounds, soft to palpation, non-tender and no masses Inspection: Negative for abdominal distention Auscultation: normoactive bowel sounds Palpation: Negative for tender, guarding or hepatomegaly Back/Spine no CVA tenderness General Back: Negative for CVA tenderness Cervical Spine: Negative for cervical spine tenderness Thoracic Spine / Upper Back: Negative for thoracic spinal tenderness Lumbar Spine / Lower Back: Negative for lumbar spinal tenderness Extremity normal to inspection General Extremety ED: Negative for deformity, edema or tenderness General Extremity: Negative for deformity or edema Neuro oriented x3 Neuro Narrative: Right facial droop. Difficulty closing her right eye tightly. Normal speech. Tongue midline. Normal motor strength sensation in both upper and lower extremities. No drift. Sensorium / Orientation: alert, oriented to person, oriented to place and oriented to time; Negative for orientation impaired, confused, lethargic or stuporous Speech: speech normal Motor Exam: strength 5/5 throughout Psych mental status grossly normal Appearance: Negative for unkempt Attitude: No agitated Mood & Affect: Negative for depressed, anxious or tearful Attention / Concentration: Negative for other Skin no wounds General Skin Exam: Negative for jaundice Lesions: no lesions Rashes: no rashes Trauma: Negative for abrasion or laceration NIHSS NIHSS Initial: 1a Level of Consciousness: 0 1b LOC Questions (Score 2 if aphasic/stupor): 0 1c LOC Commands (Only score 1st attempt): 0 2 Best Gaze (If aphasic, use reflexive mvmts.): 0 3 Visual: 0 4 Facial Palsy: 2 (Right facial droop. Difficulty closing right eye. Forehead spared.) 5 Motor Arm Right (UN = amputation/fusion): 0 5 Motor Arm Left: 0 6 Motor Leg Right: 0 6 Motor Leg Left: 0 7 Limb ataxia (Only + if out of proportion): 0 8 Sensory (Aphasia/stupor=0 or 1, coma=2): 0 9 Best Language: 0 10 Dysarthria (mute, coma=2, intubated=UN): 0 11 Extinction and Inattention (only scored if +): 0 Total Score: 2 MDM MDM MDM Narrative Medical decision making narrative: She will be given oral prednisone. Discharged home on prednisone and Famvir and outpatient follow-up. Tape to her right to keep it from getting dried out again a corneal ulcer. Artificial tears. Outpatient follow-up as needed. Repeat exam at 1219 unchanged. CAT scan unremarkable. Exam and history consistent with Hart's palsy. History & Record Review Discussion w/independent historian: Patient and Family Additional record(s) reviewed:: Prior inpatient record, Prior outpatient record, Prior ED visit, Prior labs and No prior records Lab Data Attestation: I reviewed the patient's lab results. Lab results narrative: BGT 101. Labs: Laboratory Results - last 24 hr 08/26/23 11:29 POC Glucose 101 Radiography Diagnostic Testing: Clinical Impression(s) from Imaging Studies Brain CT 08/26/23 11:57 IMPRESSION: Chronic involutional changes of the brain. Electronically Signed: Nick Bliss MD at 12:08 EST , Discharge Plan Triage Chief Complaint: Neuro S/Sx ED Provider: Óscar Willard Dx/Rx/DC Orders Clinical Impression: Hart's palsy, History of breast cancer, History of CAD (coronary artery disease) Instructions: ED Hart's Palsy Prescriptions: New prednisone 20 mg tablet 40 mg PO DAILY Qty: 14 0RF famciclovir 500 mg tablet 500 mg PO BID 7 Days Qty: 14 0RF No Action multivitamin tablet 1 tab PO DAILY vitamins A,C,T-olzd-ghsptl 7,160-113-100 pqdo-lc-xldb tablet 1 tab PO BID cholecalciferol (vitamin D3) 1,000 unit tablet 1,000 unit PO DAILY aspirin [Adult Aspirin Regimen] 81 mg tablet,delayed release (DR/EC) 81 mg PO DAILY Qty: 30 11RF metronidazole 1 % gel TOPICAL Patient Comments: APPLY TO ENTIRE FACE 1X DAILY calcium carbonate-vitamin D3 500 mg(1,250mg) -125 unit tablet 2 tab PO DAILY alendronate 70 mg tablet 70 mg PO QWEEK isosorbide mononitrate 30 mg tablet extended release 24 hr 30 mg PO DAILY Qty: 90 4RF metoprolol tartrate 25 mg tablet 25 mg PO BID Qty: 180 4RF Primary Care Provider: Fransisco Amador Referrals: Fransisco Amador MD [Primary Care Provider] - 10-14 Days if not better Activity Restrictions/Additional Instructions: Tape your right eye closed at night so does not dry out. Use artificial tears. Prednisone 40 mg once a day for the next week. Famvir twice a day for the next week. Follow-up with your doctor if not improving. Disposition Disposition: Home, Self Care
--- NOTE | 2023-08-26 11:57 | CT_ITS ---
STUDY: CT BRAIN WITHOUT CONTRAST REASON FOR EXAM: Female, 82 years old. Facial palsy RADIATION DOSAGE (If Supplied By Facility): CTDIvol = ( 44.99 ) mGy, DLP = ( 796.11 ) mGycm TECHNIQUE: Transaxial CT imaging of the brain was performed without administration of intravenous contrast material. Individualized dose optimization techniques were used for this CT. COMPARISON: No relevant priors. FINDINGS: Normal soft tissue structures. Normal calvarium. There is mild cerebral atrophy with widening of the extra-axial spaces and ventricular dilatation. Normal white matter tracts of the cerebral hemispheres. Normal basal ganglia and thalami. Normal brainstem. Normal cerebellum. There is no intracranial hemorrhage. There are no findings of an acute ischemic infarction. Normal visualized paranasal sinuses. CT/Brain/Head without Contrast IMPRESSION: Chronic involutional changes of the brain. Electronically Signed: Nick Bliss MD at 12:08 EST ,
[2023-08-26] MEDS: predniSONE 20 MG Tablet 40 MG PO (12:19)
== END 2023-08-26 12:28 | disposition home or self-care (01) ==
LOC: ED 12:04
PROVIDERS: Emergency Provider Emergency Medicine; PCP Family Medicine; Visit Provider Emergency Medicine
DX: G51.0 Bell's palsy (principal); I25.10 Atherosclerotic heart disease of native coronary artery without angina pectoris; Z85.3 Personal history of malignant neoplasm of breast; Z85.828 Personal history of other malignant neoplasm of skin
CPT/HCPCS: 70450; 82962; 99282